=== PATIENT | male | born 1980 | race Caucasian/White ===

== ENCOUNTER 2018-06-19 17:34 | Inpatient (IN) | payer BC ==
[~2018-06-19] VITALS: Ht 182.9 cm; Wt 80.2 kg
[~2018-06-19 17:34] MED LIST: LEVOTHROID,S0.125 MG PO
[2018-06-19 18:46] LABS: HEMATOCRIT 46.2 % (38.0-50.0); HEMOGLOBIN 16.7 G/DL (12.5-16.6); MCH 32.3 PG (29.0-34.0); MCHC 36.1 G/DL (30.0-36.0); MCV 89.4 FL (86-99); PLATELET COUNT 228 K/uL (156-360); RBC DIS.WIDTH-CV 11.6 % (11.8-14.6); RBC DIS.WIDTH-SD 37.4 % (39-53); RED BLOOD COUNT 5.17 M/uL (4.00-5.50); WHITE BLOOD COUNT 4.7 K/uL (4.1-10.2)
[2018-06-19 18:57] LABS: ALBUMIN 4.7 g/dL (3.2-4.8); CHLORIDE 106 mEq/L (99-109); POTASSIUM 4.2 mEq/L (3.7-5.4); SODIUM 140 mEq/L (136-147)
[2018-06-19 18:59] LABS: GLUCOSE 84 mg/dL (70-99); TOTAL PROTEIN 8.7 g/dL (6.4-8.3)
[2018-06-19 19:03] LABS: ALKALINE PHOSPHATASE 59 IU/L (3-129); CREATININE 0.9 mg/dL (0.6-1.3); GFR ESTIMATE (CALCULATED) > 59 mL/min/ (58.99-99999)
[2018-06-19 19:04] LABS: AST (GOT) 44 IU/L (2-34); UREA NITROGEN (BUN) 7 mg/dL (9-23)
[2018-06-19 19:06] LABS: ALT (GPT) 73 IU/L (3-49); LIPASE 30 U/L (1.0-51.0)
[2018-06-19 19:43] LABS: APPEARANCE CLEAR ((CLEAR)); BILIRUBIN NEGATIVE; BLOOD NEGATIVE; COLOR YELLOW ((YELLOW)); GLUCOSE (STRIP) NEGATIVE; KETONES 20; LEUKOCYTES NEGATIVE; NITRITE NEGATIVE; PROTEIN (STRIP) NEGATIVE; SPECIFIC GRAVITY 1.021 (1.000-1.030); UCUL ADDED? NO; UROBILINOGEN 0.2 MG/DL (0.2-1.0)
[2018-06-19] MEDS ORDERED: LANSOPRAZOL-AM1 EACH PO (21:24)
[2018-06-19] MEDS ORDERED: OMEPRAZOLE40 M1 PO (21:25)
[2018-06-19] MEDS ORDERED: LEVOTHYROXINE175 MCG PO (21:25)
[2018-06-19] MEDS ORDERED: ADVIL200 M1 PO (21:26)
[2018-06-19 23:59] VITALS: BP 124/85
[2018-06-20] VITALS (8 sets, daily range): BP systolic 111–143; BP diastolic 57–88
[2018-06-20 10:39] LABS: HEMATOCRIT 45.9 % (38.0-50.0); HEMOGLOBIN 16.1 G/DL (12.5-16.6); MCH 31.3 PG (29.0-34.0); MCHC 35.1 G/DL (30.0-36.0); MCV 89.1 FL (86-99); PLATELET COUNT 211 K/uL (156-360); RBC DIS.WIDTH-CV 11.5 % (11.8-14.6); RBC DIS.WIDTH-SD 37.4 % (39-53); RED BLOOD COUNT 5.15 M/uL (4.00-5.50); WHITE BLOOD COUNT 11.4 K/uL (4.1-10.2)
[2018-06-21 08:02] VITALS: BP 144/79
[2018-06-21 09:10] LABS: HEMATOCRIT 46.6 % (38.0-50.0); HEMOGLOBIN 16.4 G/DL (12.5-16.6); MCH 31.5 PG (29.0-34.0); MCHC 35.2 G/DL (30.0-36.0); MCV 89.6 FL (86-99); PLATELET COUNT 201 K/uL (156-360); RBC DIS.WIDTH-CV 11.4 % (11.8-14.6); RBC DIS.WIDTH-SD 37.2 % (39-53); WHITE BLOOD COUNT 6.8 K/uL (4.1-10.2)
[2018-06-21 09:34] LABS: ALBUMIN 4.3 G/DL (3.2-4.8); ALKALINE PHOSPHATASE 48 IU/L (3-129); ALT (GPT) 38 IU/L (3-49); AST (GOT) 24 IU/L (2-34); CHLORIDE 102 MEQ/L (99-109); CREATININE 0.7 MG/DL (0.6-1.3); GFR ESTIMATE (CALCULATED) > 59 mL/min/ (58.99-99999); GLUCOSE 88 mg/dL (70-99); POTASSIUM 4.1 MEQ/L (3.7-5.4); SODIUM 136 MEQ/L (136-147); TOTAL BILIRUBIN 1.1 MG/DL (0.0-1.0); TOTAL PROTEIN 7.2 G/DL (6.4-8.3); UREA NITROGEN (BUN) 8 mg/dL (9-23)
[2018-06-21 15:49] LABS: APPEARANCE CLEAR ((CLEAR)); BILIRUBIN NEGATIVE; BLOOD NEGATIVE; COLOR YELLOW ((YELLOW)); GLUCOSE (STRIP) NEGATIVE; KETONES 20; LEUKOCYTES NEGATIVE; NITRITE NEGATIVE; PROTEIN (STRIP) NEGATIVE; SPECIFIC GRAVITY 1.009 (1.000-1.030); UCUL ADDED? NO; UROBILINOGEN 0.2 MG/DL (0.2-1.0)
[2018-06-21 15:53] VITALS: BP 128/82
[2018-06-21 22:54] VITALS: BP 115/68
[2018-06-22 07:21] VITALS: BP 117/77
[2018-06-22 15:46] VITALS: BP 119/67
== END 2018-06-22 18:55 | disposition home or self-care (01) | DRG 390 ==
LOC: EME 17:34 → 3EAST 22:43 → EDOF 22:43 → ENRESERV 22:43 → 3EAST 23:50
PROVIDERS: Physician Assistant; Physician Assistant Medical; Surgery
DX: K56.609 Unspecified intestinal obstruction, unspecified as to partial versus complete obstruction (principal); R03.0 Elevated blood-pressure reading, without diagnosis of hypertension; E03.9 Hypothyroidism, unspecified
CPT/HCPCS: 71045; 74019; 74176; 74250; 80053; 81003; 83690; 85027; 99281; 99285; J2250; J2270; J3010; J7030; J7120